=== PATIENT | female | born 1970 | race Caucasian/White ===

== ENCOUNTER 2017-08-12 19:51 | Emergency (ER) | payer BC ==
[~2017-08-12] VITALS: Ht 152.4 cm; Wt 46.7 kg
[2017-08-12 23:57] VITALS: BP 00/0
== END 2017-08-12 23:59 | disposition home or self-care (01) ==
LOC: EME 19:51
DX: R04.0 Epistaxis (principal); Z87.891 Personal history of nicotine dependence
CPT/HCPCS: 99281; 99283

== ENCOUNTER 2017-12-30 19:21 | Emergency (ER) | payer BC ==
[~2017-12-30] VITALS: Ht 152.4 cm; Wt 47.8 kg
[2017-12-30 19:26] VITALS: BP 153/100
[2017-12-31] MEDS ORDERED: PERCOCET 5/31 TABLET PO (16:59)
[2017-12-31] MEDS ORDERED: CIPRO500 MG PO (16:59)
[2017-12-31] MEDS ORDERED: ZOFRAN ODT4 MG PO (16:59)
== END 2017-12-30 19:49 | disposition left against medical advice (07) ==
LOC: EME 19:21
DX: R10.9 Unspecified abdominal pain (principal); Z53.21 Procedure and treatment not carried out due to patient leaving prior to being seen by health care provider
CPT/HCPCS: 80048; 81003; 85027

== ENCOUNTER 2017-12-31 10:30 | Emergency (ER) | payer BC ==
[~2017-12-31] VITALS: Ht 152.4 cm; Wt 47.8 kg
[2017-12-31 11:24] LABS: HEMATOCRIT 41.5 % (36.0-46.0); HEMOGLOBIN 14.2 G/DL (11.9-15.5); MCH 30.5 PG (29.0-34.0); MCHC 34.2 G/DL (30.0-36.0); MCV 89.1 FL (83-99); PLATELET COUNT 200 K/uL (156-360); RBC DIS.WIDTH-CV 12.7 % (11.8-14.6); RBC DIS.WIDTH-SD 41.5 % (39-53); RED BLOOD COUNT 4.66 M/uL (3.80-5.20); WHITE BLOOD COUNT 12.1 K/uL (4.1-10.2)
[2017-12-31 11:34] LABS: CHLORIDE 106 mEq/L (99-109); POTASSIUM 3.7 mEq/L (3.7-5.4); SODIUM 139 mEq/L (136-147)
[2017-12-31 11:36] LABS: GLUCOSE 161 mg/dL (70-99)
[2017-12-31 11:40] LABS: CREATININE 0.9 mg/dL (0.6-1.3); GFR ESTIMATE (CALCULATED) > 59 mL/min/
[2017-12-31 11:41] LABS: UREA NITROGEN (BUN) 14 mg/dL (9-23)
[2017-12-31 12:32] LABS: APPEARANCE SL.HAZY ((CLEAR)); BILIRUBIN NEGATIVE; BLOOD MODERATE; COLOR YELLOW ((YELLOW)); GLUCOSE (STRIP) NEGATIVE; KETONES NEGATIVE; LEUKOCYTES NEGATIVE; NITRITE NEGATIVE; PROTEIN (STRIP) 30; SPECIFIC GRAVITY 1.025 (1.000-1.030); UROBILINOGEN 0.2 MG/DL (0.2-1.0)
[2017-12-31 12:53] LABS: WHITE BLOOD CELLS 0-5 /HPF (0-5)
[2017-12-31 12:54] LABS: BACTERIA 1+ /HPF; CALCIUM OXALATE CRYSTALS RARE /HPF; EPITHELIAL CELLS RARE /HPF; MUCUS NONE SEEN /LPF; UCUL ADDED? NO
[2017-12-31 15:04] LABS: ALBUMIN 4.6 g/dL (3.2-4.8)
[2017-12-31 15:06] LABS: TOTAL PROTEIN 7.7 g/dL (6.4-8.3)
[2017-12-31 15:08] LABS: TOTAL BILIRUBIN 1.8 mg/dL (0.0-1.0)
[2017-12-31 15:09] LABS: ALKALINE PHOSPHATASE 44 IU/L (3-129)
[2017-12-31 15:12] LABS: ALT (GPT) 21 IU/L (3-49); AST (GOT) 20 IU/L (2-34); DIRECT BILIRUBIN 0.6 mg/dL (0.0-0.3)
[2017-12-31 15:13] LABS: LIPASE 21 U/L (1.0-51.0)
[2017-12-31] MEDS ORDERED: PERCOCET 5/31 TABLET PO (16:59)
[2017-12-31] MEDS ORDERED: CIPRO500 MG PO (16:59)
[2017-12-31] MEDS ORDERED: ZOFRAN ODT4 MG PO (16:59)
[2017-12-31 17:15] VITALS: BP 146/83
== END 2017-12-31 17:16 | disposition home or self-care (01) ==
LOC: EME 10:30
DX: N13.30 Unspecified hydronephrosis (principal); N83.201 Unspecified ovarian cyst, right side; N83.202 Unspecified ovarian cyst, left side; E78.5 Hyperlipidemia, unspecified; M41.9 Scoliosis, unspecified; Z87.442 Personal history of urinary calculi; Z90.710 Acquired absence of both cervix and uterus; Z87.891 Personal history of nicotine dependence
CPT/HCPCS: 74176; 80048; 80076; 81003; 83690; 85027; 99281; 99284; J1885; J2270; J2405; J7030